=== PATIENT | male | born 1995 | race Caucasian/White ===

== ENCOUNTER 2020-07-18 13:48 | Emergency (ER) | payer OTHER ==
[2020-07-18 14:16] VITALS: BP 145/78; PULSE 95; O2SAT 100
--- NOTE | 2020-07-18 14:36 | ERPHSYRPT ---
- History of Present Illness Time Seen by Provider: 07/18/20 14:12 Source: patient Exam Limitations: no limitations Patient Subjective Stated Complaint: "I have had a tooth ache for past 2 days" "I would like some antibiotics" Triage Nursing Assessment: AAox3, walked in. C/o tooth pain in left lower molar area for past 2-3 days. States does no have dentist. Color good, afebrile. Resp easy, has no other complaints. Physician History: 24 years old male presented in the ER with 2-day history of left lower jaw progressively worsening sharp shooting pain moderate intensity associated with swelling of her lower jaw. Patient has history of multiple dental caries and periodontal disease. No fever or chills reported. Timing/Duration: gradual onset, days (2) Severity: moderate ENT Location: dental Prearrival Treatment: over the counter meds Associated Symptoms: tooth pain Allergies/Adverse Reactions: steroids Allergy (Uncoded 10/30/18 12:29) not sure, told he cannot take them Hx Tetanus, Diphtheria Vaccination/Date Given: (unknown) Hx Influenza Vaccination/Date Given: No Hx Pneumococcal Vaccination/Date Given: No Travel Risk - International Travel Have you traveled outside of the country in past 3 weeks: No - Coronavirus Screening Are you exhibiting any of the following symptoms?: No Close contact with a COVID-19 positive Pt in past 14-21 Days: No - Review of Systems Constitutional: No Symptoms Eyes: No Symptoms Ears, Nose, & Throat: Mouth Pain, Mouth Swelling Respiratory: No Symptoms Cardiac: No Symptoms Abdominal/Gastrointestinal: No Symptoms Genitourinary Symptoms: No Symptoms Musculoskeletal: No Symptoms Skin: No Symptoms Endocrine: No Symptoms Immunological/Allergic: No Symptoms - Past Medical History Pertinent Past Medical History: Yes Neurological History: No Pertinent History ENT History: No Pertinent History Cardiac History: No Pertinent History Respiratory History: No Pertinent History Endocrine Medical History: No Pertinent History Musculoskeletal History: No Pertinent History GI Medical History: No Pertinent History History: No Pertinent History Male Reproductive Disorders: No Pertinent History Other Medical History: h-pylori - Past Surgical History Past Surgical History: Yes Neuro Surgical History: No Pertinent History Cardiac: No Pertinent History Respiratory: No Pertinent History Gastrointestinal: No Pertinent History Genitourinary: No Pertinent History Musculoskeletal: No Pertinent History Male Surgical History: No Pertinent History Other Surgical History: GI Scope - Social History Smoking Status: Current every day smoker How long have you smoked: years Exposure to second hand smoke: No Drug Use: none Patient Lives Alone: No (Lives with father) - Nursing Vital Signs Nursing Vital Signs: Initial Vital Signs Temperature 98.2 F 07/18/20 14:06 Pulse Rate 95 H 07/18/20 14:06 Respiratory Rate 18 07/18/20 14:06 Blood Pressure 145/78 07/18/20 14:06 O2 Sat by Pulse Oximetry 100 07/18/20 14:06 Pain Scale Pain Intensity 7 - Physical Exam General Appearance: no apparent distress, alert Eye Exam: bilateral eye: normal inspection, PERRL, EOMI Ear Exam: bilateral ear: auricle normal Nasal Exam: normal inspection Throat Exam: normal, pharynx normal, dental tenderness (Multiple dental caries, gingival swelling left lower jaw molar and premolar, periodontal disease) Neck Exam: normal inspection, non-tender, supple, full range of motion Cardiovascular/Respiratory Exam: chest non-tender, normal breath sounds, regular rate/rhythm Neurologic Exam: alert, oriented x 3, cooperative, gas leak tester II-XII nml as tested, normal mood/affect Skin Exam: normal color SpO2 Interpretation: normal SpO2: 100 O2 Delivery: Room Air - Progress Progress: unchanged Progress Note: 07/18/20 14:43 Patient has periodontal disease with developing swelling, high risk for dental abscess, so I will start on Augmentin and ibuprofen, recommended outpatient dental follow-up. Counseled pt/family regarding: diagnosis, need for follow-up - Departure Departure Disposition: Home Clinical Impression: Dental abscess Condition: Stable Critical Care Time: No Referrals: ANT VÁSQUEZ [Primary Care Provider] - Follow Up with PCP/3 days MONIE SHEPARD DDS [NON-STAFF PHY W/O PRIVILEGES] - (2 days for re evaluation) Instructions: Tooth Abscess (DC), Dental Pain (DC) Additional Instructions: Take Tylenol/ibuprofen as needed for pain. Continue with antibiotics. Follow- up with dentist for reevaluation. Return to ER for any worsening Prescriptions: Ibuprofen 600 mg PO Q6HPRN PRN 10 Days #20 tablet PRN Reason: Pain Amoxicillin/Potassium Clav [Augmentin 875-125 Tablet] 875 mg PO BID #20 tablet
== END 2020-07-18 14:51 | disposition home or self-care (01) ==
LOC: ED 13:48
DX: K04.7 Periapical abscess without sinus (principal)
CPT/HCPCS: 99283

== ENCOUNTER 2020-08-08 23:34 | Emergency (ER) | payer OTHER ==
[2020-08-09] MEDS ORDERED: BACIGUENT PACKET ONE (01:22)
--- NOTE | 2020-08-09 01:33 | ERPHSYRPT ---
- History of Present Illness Time Seen by Provider: 08/09/20 00:00 Source: patient Exam Limitations: no limitations Patient Subjective Stated Complaint: Patient was attempting to cut zip ties off the back of a new pizza cutter and the knife went through package cutting his left index finger Triage Nursing Assessment: Patient arrived to ER and ambulated to room without difficulty. Patient A/O times 4. Patient able to follow instructions without difficulty. Patient noted with irregular laceration to left index finger. Small amounts of bleeding noted. Surrounding skin WNL. Patient ROM WNL. Patient able to feel sensation without difficulty. Cap refill < 3 seconds. Laceration measures approx. 0.5cm in length and 0.2 in depth. Physician History: The patient is a [id number] male who presents with a chief complaint of a laceration to his left index finger. Onset reportedly was an hour prior to arrival. He states that he stabbed himself in the affected finger while trying to cut a zip tie. He had some venous bleeding that is since resolved. The pain is mild, nonradiating and constant. Timing/Duration: today Severity: mild Associated Symptoms: nausea Allergies/Adverse Reactions: steroids Allergy (Uncoded 08/09/20 00:06) not sure, told he cannot take them Hx Tetanus, Diphtheria Vaccination/Date Given: Yes (unknown) Hx Influenza Vaccination/Date Given: No Hx Pneumococcal Vaccination/Date Given: No Immunizations Up to Date: Yes Travel Risk - International Travel Have you traveled outside of the country in past 3 weeks: No If Yes, where;: n - Coronavirus Screening Are you exhibiting any of the following symptoms?: No Close contact with a COVID-19 positive Pt in past 14-21 Days: No - Review of Systems Constitutional: No Fever, No Chills Skin: Other (Laceration, left index finger with bleeding) All Other Systems: Reviewed and Negative - Past Medical History Pertinent Past Medical History: Yes Neurological History: No Pertinent History ENT History: No Pertinent History Cardiac History: No Pertinent History Respiratory History: No Pertinent History Endocrine Medical History: No Pertinent History Musculoskeletal History: No Pertinent History GI Medical History: No Pertinent History History: No Pertinent History Psycho-Social History: No Pertinent History Male Reproductive Disorders: No Pertinent History Other Medical History: HX H-Pylori - Past Surgical History Past Surgical History: Yes Neuro Surgical History: No Pertinent History Cardiac: No Pertinent History Respiratory: No Pertinent History Gastrointestinal: No Pertinent History Genitourinary: No Pertinent History Musculoskeletal: No Pertinent History Male Surgical History: No Pertinent History Other Surgical History: GI Scope - Social History Smoking Status: Current some day smoker How long have you smoked: 4 years Exposure to second hand smoke: Yes Drug Use: none Patient Lives Alone: No (Lives with father) - Nursing Vital Signs Nursing Vital Signs: Initial Vital Signs Temperature 98.5 F 08/09/20 00:02 Pulse Rate 103 H 08/09/20 00:02 Respiratory Rate 18 08/09/20 00:02 Blood Pressure 138/81 08/09/20 00:02 O2 Sat by Pulse Oximetry 99 08/09/20 00:02 Pain Scale Pain Intensity 0 - Physical Exam General Appearance: no apparent distress, alert Eye Exam: No scleral icterus Neck Exam: supple Respiratory Exam: normal breath sounds, lungs clear, airway intact, No respiratory distress Cardiovascular Exam: regular rate/rhythm, normal heart sounds, normal peripheral pulses, capillary refill <2 sec Extremity Exam: other (Normal range of function to the DIP joint of the left index finger and the wound did not seem to involve this joint. He was able to flex and extend the distal aspect of the finger against resistance without difficulty.) Neurologic Exam: alert, oriented x 3, cooperative, other (And to the distal lateral aspect of the left index finger distal to the wound was emanation was not intact. Digital nerve exam was unremarkable, specifically to the medial aspect of the left index finger.) Skin Exam: normal color, warm, dry, other (0.25 to 0.5 cm laceration noted to the lateral aspect of the left index finger just distal to the DIP joint.) SpO2: 99 O2 Delivery: Room Air Procedures - Laceration/Wound Repair Left Lateral Finger Wound Location: Left Wound Length (cm): 0.5 Wound's Depth, Shape: linear Wound Explored: clean Irrigated: Yes Anesthesia: 1% Lidocaine Volume Anesthetic (ccs): 3 Wound Debrided: minimal Wound Repaired With: sutures Suture Size/Type: 5-0, prolene Number of Sutures: 1 Layer Closure?: No Sterile Dressing Applied?: Yes Splint Applied?: No Sling Applied?: No Progress: 08/09/20 01:15 laceration repair time - Course Nursing assessment & vital signs reviewed: Yes Ordered Tests: Medication Summary Discontinued Medications Generic Name Dose Route Start Last Admin Trade Name Lebron PRN Reason Stop Dose Admin Bacitracin Zinc Confirm 08/09/20 01:22 Baciguent Packet Administered 08/09/20 01:23 Dose 1 gm .ROUTE .Elivar-MED ONE - Progress Progress: improved Progress Note: 08/09/20 02:14 The patient presents with a laceration to the left index finger that was closed primarily at bedside (refer to procedure note). The likely suffering from a digital nerve injury as a result of a laceration. He was instructed to follow- up with hand surgery and given referral information for repair if he chose to do so. Otherwise, he was instructed to have his sutures removed in 10 days. ED return precautions for wound infection was given. He agreed with and verbally understood the discharge plan. Counseled pt/family regarding: diagnosis, need for follow-up - Departure Departure Disposition: Home Clinical Impression: Digital nerve laceration, finger, Elevated blood pressure reading Condition: Stable Critical Care Time: No Referrals: BRIGITTE FRENCH MD [NON-STAFF PHY W/O PRIVILEGES] - Instructions: Wound Care (DC), Laceration Repair With Stitches (DC) Additional Instructions: You will need to follow-up with a hand surgeon for your digital nerve injury affecting your left index finger. Please call and make this appointment if you choose to do so. In the meantime, you will need to have your stitches removed in 10 days. You can have this done by your primary care provider, urgent care or return to the ED. Prescriptions: Bacitracin 1 gm TP BID 2 Days #15 oint...g.
[2020-08-09 01:56] VITALS: BP 136/84; PULSE 75
[2020-08-09 02:05] VITALS: O2SAT 99
== END 2020-08-09 01:59 | disposition home or self-care (01) ==
LOC: ED 23:34
DX: S64.491A Injury of digital nerve of left index finger, initial encounter (principal); W26.0XXA Contact with knife, initial encounter; R03.0 Elevated blood-pressure reading, without diagnosis of hypertension
CPT/HCPCS: 99283; A9270-GY

== ENCOUNTER 2021-11-24 09:23 | Emergency (ER) | payer OTHER ==
[2021-11-24] MEDS ORDERED: BACITRACIN ZINC TP ONE (09:24)
[2021-11-24] MEDS ORDERED: XYLOCAINE 1% HCL 20 ML MDV ONE (09:42)
[2021-11-24] MEDS ORDERED: Adacel Vial IM ONE ×2 (09:49→09:55)
[2021-11-24] MEDS ORDERED: BACIGUENT 30 GM TP STA (09:55)
--- NOTE | 2021-11-24 09:55 | ERPHSYRPT ---
- History of Present Illness Time Seen by Provider: 11/24/21 09:32 Source: patient Exam Limitations: no limitations Patient Subjective Stated Complaint: patient states he was cutting up a box and the knife slipper and he stabbed his arm with knife. Triage Nursing Assessment: patient has laceration to upper left arm measuring 1.3x1.0 Physician History: 25 years old male presented to the ER with chief complaint of left elbow volar aspect laceration which he accidentally got by cutting with a box sand technologist with slipped and hit the elbow. There was bleeding initially but stopped with applying pressure. No difficulty movements of elbow but pain in the area of laceration. No distal numbness tingling or weakness. Up-to-date with immunizations. Timing/Duration: today Quality: painful Severity: mild, moderate Location: extremities Possible Causes: other Allergies/Adverse Reactions: steroids Allergy (Uncoded 08/09/20 00:06) not sure, told he cannot take them Hx Tetanus, Diphtheria Vaccination/Date Given: No Hx Influenza Vaccination/Date Given: No Hx Pneumococcal Vaccination/Date Given: No Travel Risk - International Travel Have you traveled outside of the country in past 3 weeks: No - Coronavirus Screening Are you exhibiting any of the following symptoms?: No Symptoms: Fever Close contact with a COVID-19 positive Pt in past 14-21 Days: No - Vaccine Status Have you recieved a Covid-19 vaccination: No - Review of Systems Constitutional: No Symptoms Respiratory: No Symptoms Cardiac: No Symptoms Genitourinary Symptoms: No Symptoms Musculoskeletal: Injury Skin: Skin Lesions Neurological: No Symptoms Endocrine: No Symptoms - Past Medical History Pertinent Past Medical History: Yes Neurological History: No Pertinent History ENT History: No Pertinent History Cardiac History: No Pertinent History Respiratory History: No Pertinent History Endocrine Medical History: No Pertinent History Musculoskeletal History: No Pertinent History GI Medical History: No Pertinent History History: No Pertinent History Psycho-Social History: No Pertinent History Male Reproductive Disorders: No Pertinent History Other Medical History: HX H-Pylori - Past Surgical History Past Surgical History: Yes Neuro Surgical History: No Pertinent History Cardiac: No Pertinent History Respiratory: No Pertinent History Gastrointestinal: No Pertinent History Genitourinary: No Pertinent History Musculoskeletal: No Pertinent History Male Surgical History: No Pertinent History Other Surgical History: GI Scope - Social History Smoking Status: Former smoker How long have you smoked: 4 years Exposure to second hand smoke: No Drug Use: none Patient Lives Alone: No - Nursing Vital Signs Nursing Vital Signs: Initial Vital Signs Temperature 97.6 F 11/24/21 09:25 Pulse Rate 96 H 11/24/21 09:25 Respiratory Rate 18 11/24/21 09:25 Blood Pressure 131/74 11/24/21 09:25 O2 Sat by Pulse Oximetry 100 11/24/21 09:25 Pain Scale Pain Intensity 3 - Physical Exam General Appearance: no apparent distress, alert Eye Exam: PERRL/EOMI Neck Exam: normal inspection, full range of motion Respiratory Exam: normal breath sounds, lungs clear Cardiovascular Exam: regular rate/rhythm, normal heart sounds Extremity Exam: lacerations (1.5 cm curved laceration left palpable volar aspect. No active spurting, minimal oozing. Intact range of motion. Distal neurovascular well intact.), tenderness Neurologic Exam: alert, oriented x 3, cooperative Skin Exam: normal color SpO2 Interpretation: normal SpO2: 100 O2 Delivery: Room Air Procedures - Laceration/Wound Repair Left Elbow Time of Procedure: 09:23 Wound Location: Left, lower arm Wound Length (cm): 1.5 Wound's Depth, Shape: into muscle Wound Explored: clean Irrigated: Yes Hibiclens Prep: Yes Wound Repaired With: sutures Suture Size/Type: 4-0, ethilon Number of Sutures: 3 Ordered Tests: Medication Summary Discontinued Medications Generic Name Dose Route Start Last Admin Trade Name Freq PRN Reason Stop Dose Admin Bacitracin Zinc 1 gm 11/24/21 10:00 11/24/21 10:00 Bacitracin Zinc 28 Gm Tube TP 12/24/21 09:59 Not Given DAILY LISSETH Bacitracin Zinc 1 gm 11/24/21 09:55 11/24/21 10:00 Bacitracin Zinc 28 Gm Tube TP 11/24/21 09:56 Not Given DAILY STA Diphtheria/Tetanus/Acell Pertussis 0.5 ml 11/24/21 09:49 11/24/21 10:02 Tdap --Diph,Pertuss(Acell),Tet Vac/Pf 0.5 Ml Vial IM 11/24/21 09:50 0.5 ml .ONCE ONE Administration Diphtheria/Tetanus/Acell Pertussis Confirm 11/24/21 09:55 Tdap --Diph,Pertuss(Acell),Tet Vac/Pf 0.5 Ml Vial Administered 11/24/21 09:56 Dose 0.5 ml IM .STK-MED ONE Lidocaine HCl Confirm 11/24/21 09:42 Lidocaine Hcl 1% 20 Ml Mdv 20 Ml Ml Administered 11/24/21 09:43 Dose 1 ml .ROUTE .STK-MED ONE - Progress Progress: improved Progress Note: 11/24/21 09:54 Offered local anesthesia which he refused, laceration is repaired. Outpatient follow-up recommended. Counseled pt/family regarding: diagnosis, need for follow-up - Departure Departure Disposition: Home Clinical Impression: Elbow laceration Qualifiers: Encounter type: initial encounter Laterality: left Qualified Code(s): S51.012A - Laceration without foreign body of left elbow, initial encounter Condition: Stable Critical Care Time: No Referrals: DENIS ALBERT [Primary Care Provider] - Follow Up with PCP/3 days Instructions: Laceration Repair With Stitches (DC) Additional Instructions: Avoid exertional activities with left upper extremity. Avoid lifting heavy weight. Tylenol/ibuprofen as needed for pain. Follow-up with primary care for reevaluation. Suture removal in 10 to 14 days. Return to ER for increasing pain swelling redness discharge/fever chills etc. Prescriptions: Ibuprofen 600 mg PO Q6HPRN PRN 10 Days #20 tablet PRN Reason: Pain
[2021-11-24] MEDS ORDERED: BACIGUENT 30 GM TP SCH (10:00)
[2021-11-24 10:12] VITALS: BP 134/72; PULSE 79
[2021-11-24 15:14] VITALS: O2SAT 100
== END 2021-11-24 10:24 | disposition home or self-care (01) ==
LOC: ED 09:23
DX: S51.012A Laceration without foreign body of left elbow, initial encounter (principal); W26.0XXA Contact with knife, initial encounter
CPT/HCPCS: 12001; 90471; 90715; 99283; A9270-GY

== ENCOUNTER 2024-12-06 06:35 | Day surgery (SDC) | payer OTHER ==
[2024-12-06] MEDS: Lactated Ringers 1,000 ML IV SCH (07:09)
[2024-12-06] MEDS ORDERED: Versed 2 MG/2 ML Injection ONE (07:55)
[2024-12-06] MEDS ORDERED: Xylocaine-Mpf 2% 5 Ml Vial ONE (07:55)
[2024-12-06] MEDS ORDERED: propofoL IV ONE (07:55)
[2024-12-06 08:43] VITALS: RESP 16
[2024-12-06 09:03] VITALS: TEMP 98.4; O2SAT 100
[2024-12-06 09:19] VITALS: BP 140/86; PULSE 80
--- NOTE | 2024-12-09 09:05 | OP ---
SURGERY DATE/TIME: 12/06/2024 [id number] PREOPERATIVE DIAGNOSIS: Hematemesis. POSTOPERATIVE DIAGNOSIS: Grade 4 reflux esophagitis, hiatal hernia, and gastritis. PROCEDURE: Esophagogastroduodenoscopy with cold forceps biopsy of the gastric antrum and lower esophagus. SURGEON: Jasper Godwin MD ANESTHESIA: Medications were given by the anesthesia department. INDICATIONS: The patient is a 28-year-old white male patient who presented to the emergency room approximately 2 weeks ago with hematemesis. The patient was felt the need to have endoscopic evaluation. He was apprised of the risks of the procedure including the risk of perforation, phlebitis, untoward reaction to medication, bleeding, missed lesions, and sore throat. The patient verbalized his understanding and desired to have procedure performed. DESCRIPTION OF PROCEDURE AND FINDINGS: The patient was given medication by the anesthesia department. He had continuous pulse oximetry, ECG monitoring, and intermittent blood pressure monitoring during the examination. He was placed in the left lateral decubitus position. A bite block was placed, and a flexible Olympus gastroscope was used to intubate the oropharynx. A view of the larynx was normal. The scope was easily introduced into the esophagus. The upper two-thirds were normal. The lower one-third revealed grade 3 to 4 reflux esophagitis with superficial ulcerations. There was also noted to be the hiatal hernia. The scope was passed into the stomach. The stomach was insufflated, and the scope was passed along the greater curvature of the stomach to the antrum. Pylorus was encountered and intubated. Duodenum was inspected and found to be normal. The scope was withdrawn towards the stomach again. Retroflexed view was obtained of the lesser curvature, fundus, and cardia regions of the stomach, and there again appeared to be the hiatal hernia. The scope was directed towards the gastric antrum where biopsies were obtained to rule out the presence of Helicobacter pylori-type organisms. The scope was then withdrawn to the esophagus where a biopsy was obtained in the lower esophageal area to rule out the presence of Cam-type metaplasia. The scope was then removed from the patient, who tolerated the procedure well and was sent back to outpatient recovery in good condition.
== END 2024-12-06 10:37 | disposition home or self-care (01) ==
LOC: SDC 06:35
PROVIDERS: ATTEND Family Medicine
DX: K21.9 Gastro-esophageal reflux disease without esophagitis (principal); K92.0 Hematemesis; K44.9 Diaphragmatic hernia without obstruction or gangrene; K29.70 Gastritis, unspecified, without bleeding
CPT/HCPCS: 88305; 88312; 88342; J2250; J2704